=== PATIENT | female | born 1990 | race Caucasian/White ===

== ENCOUNTER 2020-10-27 11:12 | Emergency (ER) | payer SELFPAY ==
[~2020-10-27] VITALS: Ht 167 cm; Wt 55.0 kg
[~2020-10-27 11:12] MED LIST: AC500T PO; CLIN-81 PO; DOXY100C2 PO; HYDR-1231 PO; HYDR-34 PO; IBP800T PO; METR500T PO; NAPR-243 PO; PREN1TAB39 PO; RNT150T PO; SULF-222 PO; SULF1TAB38 PO; TRAM50TA2 PO
[2020-10-27 12:00] LABS: BILIRUBIN,URINE NEGATIVE (NEGATIVE); CLARITY,URINE CLEAR; COLOR,URINE YELLOW; GLUCOSE, URINE (UA) NEGATIVE (NEGATIVE); KETONES,URINE TRACE (NEGATIVE); LEUKOCYTE ESTERASE ,URINE 1+ (NEGATIVE); NITRITE,URINE POSITIVE (NEGATIVE); PROTEIN,URINE NEGATIVE (NEGATIVE)
[2020-10-27 12:06] LABS: BASOPHILS # (AUTO) 0.1 10^3/uL (0.0-0.1); BASOPHILS % (AUTO) 1 % (0-10); EOSINOPHILS # (AUTO) 0.1 10^3/uL (0.0-0.3); EOSINOPHILS % (AUTO) 2 % (0-10); HEMATOCRIT 38 % (35-52); HEMOGLOBIN 12.5 g/dL (11.5-16.0); LYMPHOCYTES # (AUTO) 1.3 10^3/uL (1.0-4.0); LYMPHOCYTES % (AUTO) 21 % (12-44); MEAN CORPUSCULAR HEMOGLOBIN 31 pg (25-34); MEAN CORPUSCULAR HGB CONC 33 g/dL (32-36); MEAN CORPUSCULAR VOLUME 94 fL (80-99); MEAN PLATELET VOLUME 9.6 fL (9.0-12.2); MONOCYTES # (AUTO) 0.9 10^3/uL (0.0-1.0); MONOCYTES % (AUTO) 15 % (0-12); NEUTROPHILS # (AUTO) 3.8 10^3/uL (1.8-7.8); NEUTROPHILS % (AUTO) 60 % (42-75); PLATELET COUNT 319 10^3/uL (130-400); WHITE BLOOD COUNT 6.3 10^3/uL (4.3-11.0)
[2020-10-27 12:10] LABS: BACTERIA,URINE MODERATE /HPF; WBC,URINE >100 /HPF
[2020-10-27 12:12] LABS: ALBUMIN 3.6 GM/DL (3.2-4.5); CHLORIDE 104 MMOL/L (98-107); POTASSIUM 3.8 MMOL/L (3.6-5.0); SODIUM 136 MMOL/L (135-145)
[2020-10-27 12:13] LABS: CALCIUM 8.4 MG/DL (8.5-10.1)
[2020-10-27 12:14] LABS: GLUCOSE 103 MG/DL (70-105)
[2020-10-27 12:15] LABS: TOTAL PROTEIN 7.2 GM/DL (6.4-8.2)
[2020-10-27] MEDS ORDERED: CATHETER FLUSH 10 ML SYR IV PRN (12:15)
[2020-10-27] MEDS ORDERED: IOHEXOL 350 MG/ML 100 ML (OMNIPAQUE 350) VIAL IV ONE (12:15)
[2020-10-27] MEDS ORDERED: NS 100 ML (IVPB) BAG IV ONE (12:15)
[2020-10-27] MEDS ORDERED: HOLD METFORMIN - RECEIVED CONTRAST 20 ML VIAL IV SCH (12:15)
[2020-10-27 12:16] LABS: BILIRUBIN,TOTAL 0.3 MG/DL (0.1-1.0); CARBON DIOXIDE 27 MMOL/L (21-32)
[2020-10-27 12:18] LABS: ALKALINE PHOSPHATASE 52 U/L (40-136); CREATININE SERUM 0.76 MG/DL (0.60-1.30); GFR ESTIMATED > 60
--- NOTE | 2020-10-27 12:18 | ED Abdominal Pain ---
General Chief Complaint: Abdominal/GI Problems Stated Complaint: RLQ PAIN Nursing Triage Note: PT AMB TO ROOM 6 PT CO OF ABD PAIN IN R LOWER ABD STATES STARTED YESTERDAY, HAS OCC NAUSEA, PT STATES HAS RECENTLY BEEN TREATED FOR CLAMIDIA AND UTI COUPLE WEEKS AGO, STATES HAD ABN PAP AND HAD BX OF CERVIX AT [facility]. LMP10/20 Sepsis Screen: No Definite Risk Source of Information: Patient Exam Limitations: No Limitations History of Present Illness Date Seen by Provider: Oct 27, 2020 Time Seen by Provider: 12:18 Initial Comments Right lower quadrant abdominal pain since yesterday. Recent diagnosis of chlamydia and UTI a few weeks ago. Timing/Duration: 1-2 Days Severity/Quality: Moderate Location: RLQ Radiation: No Radiation Activities at Onset: None Associated Symptoms: Denies Symptoms Allergies and Home Medications Allergies Coded Allergies: tramadol (Verified Allergy, Intermediate, 10/16/13) Seizure Home Medications Hydrocodone Bit/Acetaminophen 1 Tab Tablet, 1 TAB PO Q6H PRN for PAIN Prescribed by: MARIANNE ERNANDEZ on 07/22/142008 Polyethylene Glycol 3350 17 Gm Powd.pack, 17 GM PO BID Prescribed by: MARIANNE ERNANDEZ on 10/27/20 132 Sulfamethoxazole/Trimethoprim 1 Each Tablet, 1 EACH PO BID Prescribed by: MARIANNE ERNANDEZ on 10/27/20 132 Trimethoprim/Sulfamethoxazole 1 Ea Tablet, 1 EA PO BID Prescribed by: MARIANNE ERNANDEZ on 07/18/14 1901 Patient Home Medication List Home Medication List Reviewed: Yes Review of Systems Review of Systems Constitutional: see HPI EENTM: No Symptoms Reported Respiratory: No Symptoms Reported Cardiovascular: No Symptoms Reported Gastrointestinal: See HPI, Abdominal Pain Genitourinary: No Symptoms Reported Musculoskeletal: no symptoms reported Skin: no symptoms reported Psychiatric/Neurological: No Symptoms Reported Endocrine: No Symptoms Reported Hematologic/Lymphatic: No Symptoms Reported Past Pjoesgl-Wpiovp-Nqwjdi Hx Patient Social History Alcohol Use: Rarely Uses Smoking Status: Current Everyday Smoker Type Used: Cigarettes Recent Infectious Disease Expo: No Recent Hopitalizations: No Immunizations Up To Date Tetanus Booster (TDap): Less than 5yrs PED Vaccines UTD: No Past Medical History Surgeries: No Respiratory: No Cardiac: No Neurological: Yes (history of seizure after taking tramadol) : No Last Menstrual Period: Oct 20, 2020 Reproductive Disorders: No Gastrointestinal: Yes Gastroesophageal Reflux Musculoskeletal: No Endocrine: No Cancer: No Psychosocial: No Integumentary: No Blood Disorders: No Adverse Reaction/Blood Tranf: No Family Medical History Family history: Cardiovascular disease 03 MOTHER Family history: Hypertension 03 FATHER 03 MOTHER Physical Exam Vital Signs Vital Signs - First Documented 10/27/20 11:18 Temp 37.2 Pulse 110 Resp 20 B/P (MAP) 136/90 (105) Pulse Ox 100 Capillary Refill : Less Than 3 Seconds Height/Weight/BMI Height: 5'4" Weight: 130lbs. oz. 58.959151la; 19.00 BMI Method:Stated General Appearance: WD/WN, no apparent distress Neck: non-tender, full range of motion Respiratory: no respiratory distress, no accessory muscle use Gastrointestinal: normal bowel sounds, soft, tenderness Extremities: normal range of motion, non-tender, normal inspection Neurologic/Psychiatric: alert, normal mood/affect, oriented x 3 Skin: normal color, warm/dry Progress/Results/Core Measures Results/Orders Lab Results Laboratory Tests Test 10/27/20 11:35 10/27/20 11:55 Range/Units Urine Color YELLOW Urine Clarity CLEAR Urine pH 7.0 5-9 Urine Specific [place] 1.020 1.016-1.022 Urine Protein NEGATIVE NEGATIVE Urine Glucose (UA) NEGATIVE NEGATIVE Urine Ketones TRACE H NEGATIVE Urine Nitrite POSITIVE H NEGATIVE Urine Bilirubin NEGATIVE NEGATIVE Urine Urobilinogen 0.2 < = 1.0 MG/DL Urine Leukocyte Esterase 1+ H NEGATIVE Urine RBC (Auto) TRACE-I NEGATIVE Urine RBC 2-5 H /HPF Urine WBC >100 H /HPF Urine Squamous Epithelial Cells 10-25 H /HPF Urine Crystals NONE /LPF Urine Bacteria MODERATE H /HPF Urine Casts NONE /LPF Urine Mucus SMALL H /LPF Urine Culture Indicated YES Urine Test NEGATIVE NEGATIVE White Blood Count 6.3 4.3-11.0 10^3/uL Red Blood Count 4.06 3.80-5.11 10^6/uL Hemoglobin 12.5 11.5-16.0 g/dL Hematocrit 38 35-52 % Mean Corpuscular Volume 94 80-99 fL Mean Corpuscular Hemoglobin 31 25-34 pg Mean Corpuscular Hemoglobin Concent 33 32-36 g/dL Red Cell Distribution Width 12.9 10.0-14.5 % Platelet Count 319 130-400 10^3/uL Mean Platelet Volume 9.6 9.0-12.2 fL Immature Granulocyte % (Auto) 1 % Neutrophils (%) (Auto) 60 42-75 % Lymphocytes (%) (Auto) 21 12-44 % Monocytes (%) (Auto) 15 H 0-12 % Eosinophils (%) (Auto) 2 0-10 % Basophils (%) (Auto) 1 0-10 % Neutrophils # (Auto) 3.8 1.8-7.8 10^3/uL Lymphocytes # (Auto) 1.3 1.0-4.0 10^3/uL Monocytes # (Auto) 0.9 0.0-1.0 10^3/uL Eosinophils # (Auto) 0.1 0.0-0.3 10^3/uL Basophils # (Auto) 0.1 0.0-0.1 10^3/uL Immature Granulocyte # (Auto) 0.0 0.0-0.1 10^3/uL Sodium Level 136 135-145 MMOL/L Potassium Level 3.8 3.6-5.0 MMOL/L Chloride Level 104 98-107 MMOL/L Carbon Dioxide Level 27 21-32 MMOL/L Anion Gap 5 5-14 MMOL/L Blood Urea Nitrogen 10 7-18 MG/DL Creatinine 0.76 0.60-1.30 MG/DL Estimat Glomerular Filtration Rate > 60 BUN/Creatinine Ratio 13 Glucose Level 103 70-105 MG/DL Calcium Level 8.4 L 8.5-10.1 MG/DL Corrected Calcium 8.7 8.5-10.1 MG/DL Total Bilirubin 0.3 0.1-1.0 MG/DL Aspartate Amino Transf (AST/SGOT) 15 5-34 U/L Alanine Aminotransferase (ALT/SGPT) 13 0-55 U/L Alkaline Phosphatase 52 40-136 U/L C-Reactive Protein High Sensitivity 3.89 H 0.00-0.50 MG/DL Total Protein 7.2 6.4-8.2 GM/DL Albumin 3.6 3.2-4.5 GM/DL My Orders Orders - MARIANNE ERNANDEZ HARDWOOD SAWYER Cbc With Automated Diff (10/27/20 11:54) Comprehensive Metabolic Panel (10/27/20 11:54) Hs C Reactive Protein (10/27/20 11:54) Ua Culture If Indicated (10/27/20 11:54) Ct Abd/Pelv W (Appendicitis) (10/27/20 11:54) Iohexol Injection (Omnipaque 350 Mg/Ml 1 (10/27/20 12:15) Received Contrast (Hold Metformin- Contr (10/27/20 12:15) Sodium Chloride Flush (Catheter Flush Sy (10/27/20 12:15) Ns (Ivpb) (Sodium Chloride 0.9% Ivpb Bag (10/27/20 12:15) Urine Culture (10/27/20 11:35) Chlamydia Trachomatis Urine (10/27/20 12:24) Neis Kaushik Dna Urine Test (10/27/20 12:24) Hcg,Qualitative Urine (10/27/20 12:27) Ceftriaxone For Iv Use (Rocephin For I (10/27/20 13:00) Medications Given in ED Current Medications Medications Dose Ordered Sig/Cheli Route Start Time Stop Time Status Last Admin Dose Admin Iohexol 100 ml ONCE ONCE IV 10/27/20 12:15 10/27/20 12:16 DC 10/27/20 12:47 74 ML Sodium Chloride 10 ml NEEDED PRN IV 10/27/20 12:15 10/27/20 12:47 10 ML Sodium Chloride 100 ml ONCE ONCE IV 10/27/20 12:15 10/27/20 12:16 DC 10/27/20 12:47 80 ML Vital Signs/I&O 10/27/20 11:18 Temp 37.2 Pulse 110 Resp 20 B/P (MAP) 136/90 (105) Pulse Ox 100 Blood Pressure Mean: 105 Departure Impression Primary Impression: Constipation Additional Impression: Urinary tract infection Disposition: 01 HOME, SELF-CARE Condition: Stable Departure-Patient Inst. Decision time for Depature: 13:20 Referrals: [facility] (PCP/Family) Primary Care Physician Patient Instructions: Constipation, Adult (DC), Urinary Tract Infection, Adult (DC) Add. Discharge Instructions: 1. Antibiotics and laxative as directed. Return to ER for any concerns or worsening symptoms. Follow-up with your doctor next week. All discharge instructions reviewed with patient and/or family. Voiced understanding. Scripts Polyethylene Glycol 3350 (Miralax) 17 Gm Powd.pack 17 GM PO BID, #10 EACH Prov: MARIANNE ERNANDEZ HARDWOOD SAWYER 10/27/20 Sulfamethoxazole/Trimethoprim (Bactrim Ds Tablet) 1 Each Tablet 1 EACH PO BID, #14 TAB Prov: MARIANNE ERNANDEZ APRN 10/27/20 Work/School Note: Work Release Form Date Seen in the Emergency Department: Oct 27, 2020 Return to Work: Oct 29, 2020 MARIANNE ERNANDEZ APRN Oct 27, 2020 12:18
[2020-10-27 12:19] LABS: BUN/CREATININE RATIO 13
[2020-10-27 12:21] LABS: ALANINE AMINOTRANSFERASE 13 U/L (0-55)
[2020-10-27] MEDS ORDERED: cefTRIAXone FOR IV USE 1,000 MG in WATER (STERILE) FOR INJECTION 10 ML IV ONE (13:00)
--- NOTE | 2020-10-27 13:17 | Diagnostic Imaging Report ---
PROCEDURE: CT abdomen and pelvis with contrast, rule out appendicitis. TECHNIQUE: Multiple contiguous axial images were obtained through the abdomen and pelvis after the administration of intravenous contrast. All CT scans use one or more of the following dose optimizing techniques: automated exposure control, MA and/or KvP adjustment based on patient size and exam type or iterative reconstruction. INDICATION: Abdominal pain, right lower quadrant. COMPARISON: 03/02/2014. FINDINGS: No focal hepatic, gallbladder, pancreatic, adrenal gland, or splenic abnormality is identified. There is good enhancement of the kidneys without evidence of hydronephrosis or mass. There is a moderate to large amount of stool at the level of the cecum. No significant small bowel dilatation is identified; however, there is fluid distention of the distal small bowel. There may be trace pelvic free fluid which could be physiologic. The uterus is retroverted. No urinary bladder abnormality is identified. The appendix is not clearly identified. IMPRESSION: A moderate to large amount of stool at the level of the cecum may contribute to the patient's symptoms; however, no focal inflammation or organized fluid collection is identified. There may be mild physiologic pelvic free fluid and a possible small bowel ileus. Dictated by: Dictated on workstation # [id number]
[2020-10-27] MEDS ORDERED: POLY17PO6 PO (13:21)
[2020-10-27] MEDS ORDERED: SULF1TAB35 PO (13:21)
[2020-10-27 13:44] VITALS: BP 122/74
== END 2020-10-27 13:45 | disposition home or self-care (01) ==
LOC: EDUNIT# 11:12 → ER 11:14
DX: K59.00 Constipation, unspecified (principal); N39.0 Urinary tract infection, site not specified; F41.9 Anxiety disorder, unspecified; Z88.5 Allergy status to narcotic agent; Z82.49 Family history of ischemic heart disease and other diseases of the circulatory system
CPT/HCPCS: 36415; 74177; 80053; 81000; 84703; 85025; 86141; 87077; 87088; 87491; 87591

== ENCOUNTER 2021-01-28 09:46 | Emergency (ER) | payer SELFPAY ==
[~2021-01-28] VITALS: Ht 162.5 cm; Wt 56.6 kg
[~2021-01-28 09:46] MED LIST changes: +POLY17PO6 PO; +SULF1TAB35 PO
--- NOTE | 2021-01-28 10:26 | ED Upper Extremity ---
General Chief Complaint: Upper Extremity Stated Complaint: L HAND PAIN Nursing Triage Note: PT REPORTS INJURING L HAND FOUR DAYS AGO. PT REPORTS HOLDING DOG'S COLLAR WHEN DOG JERKED CAUSING PT TO HAVE L HAND PAIN. 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 PT REPORTS PAIN IS WORSE IN RING FINGER AND PINKIE FINGER. PT REPORTS NO PAIN AT THIS TIME BUT PAIN WITH USE. Nursing Sepsis Screen: No Definite Risk History of Present Illness Date Seen by Provider: Jan 28, 2021 Time Seen by Provider: 10:20 Initial Comments Patient is a 30-year-old female who presents to the emergency department today with a chief complaint of left hand pain. Patient is right-hand dominant and states that she was holding onto her dog's collar about 4 days ago with her left hand when the dog jerked away from her. Patient has complained of pain and swelling and discomfort since that time. She noticed it was much worse this morning when she was trying to lift heavy boxes at work. No other complaints of illness or injury. She denies pain to the left elbow or left shoulder. She did not fall or hit her head. She has not taken anything for the pain All other review of systems reviewed and negative except as stated above. Onset: last week Severity: moderate Pain/Injury Location: left hand Method of Injury: twisted Modifying Factors: Worse With Movement Allergies and Home Medications Allergies Coded Allergies: tramadol (Verified Allergy, Intermediate, 10/16/13) Seizure sulfamethoxazole (Verified Allergy, Unknown, 10/27/20) trimethoprim (Verified Allergy, Unknown, 10/27/20) Home Medications Hydrocodone Bit/Acetaminophen 1 Tab Tablet, 1 TAB PO Q6H PRN for PAIN Prescribed by: MARIANNE ERNANDEZ on 07/22/142008 Polyethylene Glycol 3350 17 Gm Powd.pack, 17 GM PO BID Prescribed by: MARIANNE ERNANDEZ on 10/27/20 132 Sulfamethoxazole/Trimethoprim 1 Each Tablet, 1 EACH PO BID Prescribed by: MARIANNE ERNANDEZ on 10/27/20 1321 Trimethoprim/Sulfamethoxazole 1 Ea Tablet, 1 EA PO BID Prescribed by: MARIANNE ERNANDEZ on 07/18/14 1901 Patient Home Medication List Home Medication List Reviewed: Yes Review of Systems Constitutional: see HPI EENTM: no symptoms reported Respiratory: no symptoms reported Cardiovascular: no symptoms reported Gastrointestinal: no symptoms reported Genitourinary: no symptoms reported : No Musculoskeletal: joint pain (Left hand) Skin: change in color (Bruising left hand) All Other Systems Reviewed Negative Unless Noted: Yes Past Urdydeu-Ounspy-Alcgck Hx Patient Social History Alcohol Use: Denies Use Smoking Status: Current Everyday Smoker Type Used: Cigarettes 2nd Hand Smoke Exposure: Yes Recent Infectious Disease Expo: No Recent Hopitalizations: No Immunizations Up To Date Tetanus Booster (TDap): Less than 5yrs PED Vaccines UTD: No Past Medical History Surgeries: No Respiratory: No Cardiac: No Neurological: Yes (history of seizure after taking tramadol) Reproductive Disorders: No Gastrointestinal: Yes Gastroesophageal Reflux Musculoskeletal: No Endocrine: No Cancer: No Psychosocial: No Integumentary: No Blood Disorders: No Adverse Reaction/Blood Tranf: No Family Medical History Family history: Cardiovascular disease 03 MOTHER Family history: Hypertension 03 FATHER 03 MOTHER Physical Exam Vital Signs Vital Signs - First Documented 01/28/21 10:02 Temp 36.9 Pulse 83 Resp 20 B/P (MAP) 130/87 (101) Pulse Ox 98 O2 Delivery Room Air Capillary Refill : Less Than 3 Seconds Height, Weight, BMI Height: 5'4" Weight: 130lbs. oz. 58.618097eu; 21.00 BMI Method:Stated General Appearance: WD/WN, no apparent distress HEENT: PERRL/EOMI Neck: full range of motion Cardiovascular: regular rate, rhythm Respiratory: no respiratory distress, no accessory muscle use Shoulder: normal inspection, non-tender, no evidence of injury, normal ROM Elbow/Forearm: normal inspection, non-tender, no evidence of injury, normal ROM Wrist: Yes normal inspection, Yes non-tender, Yes no evidence of injury, Yes no rmal ROM Hand: Left (Left hand shows some bruising and ecchymosis over the volar aspect of the left fourth and fifth fingers. She has tenderness to palpation over the metacarpals of the fourth and fifth finger) Neurologic/Tendon: normal sensation, normal motor functions, normal tendon functions Neurologic/Psychiatric: alert, normal mood/affect, oriented x 3 Skin: normal color, warm/dry Progress/Results/Core Measures Results/Orders My Orders Orders - VON BREAUX MD Hand, Left, 3 Views (01/28/21 10:23) Vital Signs/I&O 01/28/21 10:02 Temp 36.9 Pulse 83 Resp 20 B/P (MAP) 130/87 (101) Pulse Ox 98 O2 Delivery Room Air Blood Pressure Mean: 101 Departure Impression Primary Impression: Sprain of left hand Qualified Codes: S63.92XA - Sprain of unspecified part of left wrist and hand, initial encounter Disposition: HOME, SELF-CARE Condition: Stable Departure-Patient Inst. Decision time for Depature: 11:08 Referrals: [facility] ([place]/Family) Primary Care Physician Patient Instructions: Hand Pain (DC) Add. Discharge Instructions: Take [id number] ibuprofen 3 tablets, which is 600 mg, every 8 hours with food for pain. You can use ice to your left hand for the swelling. An Ugo wrap for comfort. Follow-up with your primary caregiver as needed for any further follow-up Return to the emergency room for any new, acute or emergent complaints. VON BREAUX MD Jan 28, 2021 10:26
[2021-01-28 11:15] VITALS: BP 130/87
--- NOTE | 2021-01-28 11:21 | Diagnostic Imaging Report ---
INDICATION: Left hand injury. Time of exam 10:55 a.m. The distal radius and ulna appear intact. The carpus appears intact. Metacarpals are unremarkable. The phalanges appear intact. Alignment is normal. IMPRESSION: No acute bony abnormality is detected. Dictated by: Dictated on workstation # [id number]
== END 2021-01-28 11:15 | disposition home or self-care (01) ==
LOC: EDUNIT# 09:46 → ER 09:48
DX: S63.92XA Sprain of unspecified part of left wrist and hand, initial encounter (principal); F17.210 Nicotine dependence, cigarettes, uncomplicated; Z88.2 Allergy status to sulfonamides; Z88.5 Allergy status to narcotic agent; Z88.1 Allergy status to other antibiotic agents; X50.0XXA Overexertion from strenuous movement or load, initial encounter
CPT/HCPCS: 73130

== ENCOUNTER 2021-08-14 14:38 | Emergency (ER) | payer SELFPAY ==
[~2021-08-14] VITALS: Ht 162.6 cm; Wt 56.6 kg
[~2021-08-14 14:38] MED LIST changes: -SULF1TAB35 PO
[2021-08-14] MEDS ORDERED: AMOXICILLIN 500 MG (POLYMOX) CAP PO STA (15:45)
[2021-08-14] MEDS ORDERED: AMOX500T2 PO (15:49)
--- NOTE | 2021-08-14 15:49 | ED Integumentary General ---
General Chief Complaint: Skin/Wound Problems Stated Complaint: KNOT/SWELLING/PAIN RIGHT SIDE OF NECK Nursing Triage Note: TO ED VIA POV AND AMBULATORY TO FT1 WITH C/O "2 KNOTS IN RIGHT SIDE OF NECK AND REDNESS". NO REDNESS OR SWELLING VISIBLY NOTED. PT STATES THIS STARTED APPROX 1 WEEK AGO SMALL "KNOT" AND NOW IS BECOMING BIGGER WITH "2 KNOTS" AND C/O OF RIGHT EAR PAIN. DENIES SORE THROAT, FEVERS. Source: patient Exam Limitations: no limitations History of Present Illness Date Seen by Provider: Aug 14, 2021 Time Seen by Provider: 15:46 Initial Comments To ER with a tender knot to the right side of her neck as well as some right ear pain and a bad tooth on the right side. No fevers or chills. Symptoms began 2 to 3 days ago. Timing/Duration: just prior to arrival Severity: moderate Possible Cause: no cause identified Associated Symptoms: denies symptoms Allergies and Home Medications Allergies Coded Allergies: tramadol (Verified Allergy, Intermediate, 10/16/13) Seizure sulfamethoxazole (Verified Allergy, Unknown, Hives, 08/14/21) trimethoprim (Verified Allergy, Unknown, Hives, 08/14/21) Patient Home Medication List Home Medication List Reviewed: Yes Amoxicillin (Amoxicillin) 500 Mg Tablet, 500 MG PO TID Prescribed by: MARIANNE ERNANDEZ on 08/14/21 1549 Hydrocodone Bit/Acetaminophen (Hydrocodone-Apap 5-325 Tablet) 1 Tab Tablet, 1 TAB PO Q6H PRN for PAIN Prescribed by: MARIANNE ERNANDEZ on 07/22/142008 Polyethylene Glycol 3350 (Miralax) 17 Gm Powd.pack, 17 GM PO BID Prescribed by: MARIANNE ERNANDEZ on 10/27/20 1321 Sulfamethoxazole/Trimethoprim (Bactrim Ds Tablet) 1 Each Tablet, 1 EACH PO BID Prescribed by: MARIANNE ERNANDEZ on 10/27/20 1321 Trimethoprim/Sulfamethoxazole (Bactrim DS) 1 Ea Tablet, 1 EA PO BID Prescribed by: MARIANNE ERNANDEZ on 07/18/14 1901 Review of Systems Review of Systems Constitutional: see HPI; No chills, No fever EENTM: see HPI Respiratory: no symptoms reported Cardiovascular: no symptoms reported Genitourinary: no symptoms reported Musculoskeletal: no symptoms reported Skin: no symptoms reported Psychiatric/Neurological: No Symptoms Reported Endocrine: No Symptoms Reported Past Jxlmjuo-Kivscn-Ukxygl Hx Patient Social History Tobacco Use?: Yes Tobacco type used: Cigarettes Smoking Status: Current Everyday Smoker Substance use?: No Alcohol Use?: No Immunizations Up To Date Tetanus Booster (TDap): Less than 5yrs PED Vaccines UTD: No Past Medical History Surgeries: No Respiratory: No Cardiac: No Neurological: Yes (history of seizure after taking tramadol) Reproductive Disorders: No Gastrointestinal: Yes Gastroesophageal Reflux Musculoskeletal: No Endocrine: No Cancer: No Psychosocial: No Integumentary: No Blood Disorders: No Adverse Reaction/Blood Tranf: No Family Medical History Family history: Cardiovascular disease 03 MOTHER Family history: Hypertension 03 FATHER 03 MOTHER Physical Exam Vital Signs Vital Signs - First Documented 08/14/21 15:02 Temp 36.5 Pulse 94 Resp 16 B/P (MAP) 120/84 (96) Pulse Ox 100 O2 Delivery Room Air Capillary Refill : Less Than 3 Seconds General Appearance: WD/WN, no apparent distress HEENT: PERRL/EOMI, normal ENT inspection Respiratory: no respiratory distress, no accessory muscle use Extremities: normal range of motion, non-tender Neurologic/Psychiatric: alert, normal mood/affect, oriented x 3 Skin: normal color, warm/dry Skin Problem Character: other (Tender mobile dime sized lymph node posterior cervical chain right sided. Tympanic membrane obscured by cerumen. She does have a fractured and carious lower molar on the right, no swelling or abscess.) Progress/Results/Core Measures Results/Orders My Orders Orders - MARIANNE ERNANDEZ APRN Dexamethasone Injection (Decadron Inje (08/14/21 15:45) Amoxicillin Capsule (Polymox Capsule) (08/14/21 15:45) Vital Signs/I&O 08/14/21 15:02 Temp 36.5 Pulse 94 Resp 16 B/P (MAP) 120/84 (96) Pulse Ox 100 O2 Delivery Room Air Blood Pressure Mean: 96 Departure Impression Primary Impression: Dental caries Additional Impression: Lymphadenopathy of head and neck Disposition: 01 HOME, SELF-CARE Condition: Stable Departure-Patient Inst. Decision time for Depature: 15:48 Referrals: [facility] (PCP/Family) Primary Care Physician Patient Instructions: Lymphadenitis Add. Discharge Instructions: 1. Take ibuprofen for pain. This will resolve over the course of the next 3 to 4 days. Antibiotic as directed. Return to ER for any concerns. See your dentist as soon as they can see you in regards to the lower tooth on the right. All discharge instructions reviewed with patient and/or family. Voiced understanding. Scripts Amoxicillin (Amoxicillin) 500 Mg Tablet 500 MG PO TID, #21 TAB Prov: MARIANNE ERNANDEZ APRN 08/14/21 MARIANNE ERNANDEZ APRN Aug 14, 2021 15:49
[2021-08-14 16:15] VITALS: BP 120/82
== END 2021-08-14 16:15 | disposition home or self-care (01) ==
LOC: EDUNIT# 14:38 → ER 14:41
DX: K02.9 Dental caries, unspecified (principal); R59.1 Generalized enlarged lymph nodes; F17.210 Nicotine dependence, cigarettes, uncomplicated
CPT/HCPCS: 99284

== ENCOUNTER 2023-04-21 06:16 | Inpatient (IN) | payer MEDICAID ==
[2023-04-21] VITALS (32 sets, daily range): BP systolic 94–169; BP diastolic 51–87
[~2023-04-21] VITALS: Ht 162.5 cm; Wt 86.1 kg
[~2023-04-21 06:16] MED LIST changes: +AMOX500T2 PO; +PREN-142 PO
--- OUTSIDE RECORDS SUMMARY | 2023-04-21 06:19 | XMS REPORT ---
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 Name Role Phone CARLOS ALBERTO BENITEZ Unavailable PROBLEMS Type Condition ICD9-CM Code OTG91-QN Code Onset Dates Condition S tatus W/U Status Risk SNOMED Code Notes Problem Vaginal discharge N89.8 confirmed 27 7606761 Problem Missed period N92.6 confirmed 681018 00 Problem care in second trimester Z34.92 con firmed 017437211 Problem Exposure to chlamydia Z20.2 confirmed 362052291 Problem Exposure to hepatitis Z20.5 confirmed 289094858 Problem Family history of diabetes mellitus Z83.3 c onfirmed 044296674 Problem Tobacco use Z72.0 confirmed 47204895 0 Problem Anxiety F41.9 confirmed 74804724 Problem Dyspareunia, female N94.10 confirmed 02855818 Problem History of self-harm Z91.5 confirmed 556123234 Problem care in first trimester Z34.91 conf irm 385775335 Problem Initiation of OCP (BCP) Z30.011 confirmed 26554518 Problem Mood disorder F39 confirmed 257289 05 Problem Night terrors F51.4 confirmed 490116 03 Problem Moderate persistent asthma without complication J45.40 confirmed 109264726 Problem Cervical high risk human papillomavirus (HPV) DN A test positive R87.810 confirmed 755024184 ALLERGIES Allergen (clinical drug ingredient) Drug/Non Drug Allergy do cumented on EMR Reaction Allergy Type Onset Date Status sulfamethoxazole / trimethoprim Bactrim(ND Code:[address]-53) hives Drug Allergy Active tramadol Tramadol HCl(NDC Code:[address]-83) seizures Drug Aller gy Active ENCOUNTERS from 1990 to 2023-02-25 Encounter Location Date Provider [facility] [address] [facility] [id number] [place] [address] Feb, CARLOS ALBERTO BENITEZ Exposure to COVID-19 virus Z20.828 IMMUNIZATIONS Vaccine Route Administration Date Status Hib 4 dose schedule Unknown May 17, 1991 Administered Hib 4 dose schedule Unknown January 31, 1991 Administered DTP Unknown Jul 02, 1992 Administered DTP Unknown May 17, 1991 Administered OPV Unknown 1990 Administered Hib 4 dose schedule Unknown December 05, 1991 Administered Hib 4 dose schedule Unknown Aug 08, 1991 Administered PRIVATE TDAP (BOOSTRIX) IM Intramuscular February 15, 2023 Adminis tered DTP Unknown January 31, 1991 Administered DTP Unknown 1990 Administered OPV Unknown January 31, 1991 Administered OPV Unknown Jul 02, 1992 Administered OPV Unknown Apr 04, 1995 Administered hepatitis b pediatric (history) Unknown Sep 29, 2000 Administered mmr-II (history) Unknown December 05, 1991 Administered mmr-II (history) Unknown Apr 04, 1995 Administered dtap (history) Unknown Apr 04, 1995 Administered engerix hepatitis b pediatric/adolescent (history) Unknown Apr 05, 2001 Administered SOCIAL HISTORY Sex Assigned At : Social History Observation Description Sex Assigned At Unknown Alcohol Screen (Audit-C) Question Answer Notes Did you have a drink containing alcohol in the past year? No Points 0 Interpretation Negative Cessation Question Answer Notes Date Tobacco Cessation Provided: 09/09/2022 Sexual History Question Answer Notes Had sex in the past 12 months (vaginal, oral, or anal)? Yes Last menstrual period 07/24/2022 Have you ever had a Sexually transmitted disease? Yes Prevention strategies discussed: Condoms with Men only Use protection? No Other? Yes Syphilis? No Herpes? No GC? No Chlamydia? No PHQ2 Question Answer Notes In the last 2 weeks, how often have you had little interest or pleasure in doing things? Not at all In the last 2 weeks, how often have you been feeling down, depressed, or hopeless? Not at all Total PHQ2 Score 0 Tobacco use other than smoking: Question Answer Notes Are you an other tobacco user? No REASON FOR REFERRAL No Information VITAL SIGNS No information MEDICATIONS Medication SIG (Take, Route, Frequency, Duration) Notes Start Da te End Date Status 28-0.8 MG 1 tablet Orally Once a day Active Triamcinolone Acetonide 0.1 % 1 application Externally Twice a d ay for 7 days December, Not-Taking PROCEDURES No Information RESULTS No Results REASON FOR VISIT Covid Testing-[place] [employer] MEDICAL (GENERAL) HISTORY Type Description Date Surgical History No Surgical history information Goals Section No Information Health Concerns No Information MEDICAL EQUIPMENT No Information MENTAL STATUS No Information FUNCTIONAL STATUS No Information ASSESSMENTS Encounter Date Diagnosis Assessment Notes Treatment Notes Treatm ent Clinical Notes Feb, Exposure to COVID-19 virus (ICD-10 - Z20 .828) PLAN OF TREATMENT Next Appt Details Provider Name:LEDY BE, 03-01 02:15:00 PM, [address] , [place], [address], Insurance Providers Payer Name Payer Address Payer Phone Insured Name Patient Relati onship to Insured Coverage Start Date Coverage End Date Subscriber Number [facility] DENT[facility] [address] [facility] [address] Rosario Tafoya Self - patient is the insured [id number] [facility] [address] [address] [facility] [phone] Rosario Tafoya Self - patient is the insured 2022 [id number] MEDICATIONS ADMINISTERED Medication Instructions Date of Administration Dosage cefTRIAXone Sodium May, 500 mg cefTRIAXone Sodium Sep, 500 mg
[2023-04-21] MEDS ORDERED: LACTATED RINGERS 1,000 ML 500 ML IV PRN (06:30)
[2023-04-21] MEDS ORDERED: AMPICILLIN (IV) 2,000 MG in NS (IVPB) 50 ML 50 ML IV ONE (06:30)
[2023-04-21] MEDS ORDERED: D5 LR 1,000 ML IV SOLN 1,000 ML IV ONE (06:30)
[2023-04-21] MEDS ORDERED: MINERAL OIL 30 ML UDC TOP PRN (06:30)
--- NOTE | 2023-04-21 06:41 | History & Physical-OB ---
OB - Chief Complaint & HPI Date/Time Date of Admission: Date of Admission: Apr 21, 2023 at 06:16 Date seen by a Provider: Apr 21, 2023 Time Seen by a Provider: 06:30 Chief Complaint/History OB-Reason for Admission/Chief: Induction of Labor Hx : 3 Hx Para: 2 Expected Date of Delivery: Apr 28, 2023 Gestational Age in Weeks: 39 Gestational Age in Days: 0 Admission Nurse Assessment Rev: Yes History of Labs GBS positive Allergies and Home Medications Allergies Coded Allergies: tramadol (Verified Allergy, Intermediate, 10/16/13) Seizure sulfamethoxazole (Verified Allergy, Unknown, Hives, 08/14/21) trimethoprim (Verified Allergy, Unknown, Hives, 08/14/21) Patient Home Medication List Home Medication List Reviewed: Yes Vit No.124/Iron/FA ( Vitamin Tablet) 27 Mg Iron-800 Mcg Tablet, 1 EACH PO DAILY, (Reported) Entered as Reported by: ATA RASHEED on 03/19/23 8262 OB - History Hx of Present Care: Yes Ultrasounds: Normal mid trimester US Obstetrical Complications: None Medical Complications: None Obstetrical History Hx Termination: No Hx Multiple Gestation: No Hx Stillbirth: No Hx Complication: No Hx Induced Hypertens: No Hx Maternal Gestational Diabet: No Delivery History Hx Dystocia: No Hx Large For Gestational Age I: No Hx Small for Gestational Age I: No Hx Section: No Hx Vaginal Delivery Post C-Sec: No Hx Blood Disorders: No Adverse Rxn to Tranfusion: No Patient Past Medical History no chronic medical problems Social History/Family History 2nd Hand Smoke Exposure: Yes Immunizations Hepatitis A: No Hepatitis B: No Tetanus Booster (TDap): Less than 5yrs OB - Admission Exam Physical Exam HEENT: Moist Membranes Heart: Rhythm Normal Lungs: Clear Abdomen: Gravid Cervical Dilatation: 2cm Effacement: 50% Station: -3 Membranes: Intact Amniotic Fluid: Clear Heart Rate: 130's Accelerations: Accelerations Present Decelerations: No Decelerations Short Term Variability: Present Fpc Variability: Average (6-25) Contractions on Admission: None Deluca Scoring Tool (Modified) Dilation (cm): 1-2cm (1) Effacement (%): 31-51% (1) Descent/Station: -3 (0) Cervix Consistency: Medium(1) Cervix Position: Middle/Mid-Position (1) Add 1 point for: Each previous vaginal delivery (1) Deluca Score: 6 OB - Assessment/Plan/Diagnosis Assessment Assessment: induction of labor (at term) Admission Dx 1. IUP at term 39 weeks. Admission Status: Inpatient Order (span 2 midnights) Reason for Inpatient Admission: Induction of labor Plan Plan: Induction Induction Method: AROM Other Plan 1. Patient desires epidural -pitocin as necessary -GBS prophylaxis LEDY BE MD Apr 21, 2023 06:41
[2023-04-21] MEDS: D5 LR 1,000 ML IV SOLN 1,000 ML IV SCH ×2 (07:15→15:30)
--- NOTE | 2023-04-21 07:19 | Progress Note ---
Standard Progress Note Progress Notes/Assess & Plan Date Seen by a Provider: Apr 21, 2023 Time Seen by a Provider: 07:05 Progress/Assessment & Plan Called to room 319 for difficult IV start. Multiple attempts prior to my arrival. 22 G IV Rt wrist x 1 attempt. Flushed with ease and tegaderm applied. NIMISHA DENG DO Apr 21, 2023 07:19
[2023-04-21] MEDS ORDERED: OXYTOCIN DRIP PRE-MIX 500 ML IV SCH ×2 (08:00→17:30)
[2023-04-21 08:17] LABS: BASOPHILS # (AUTO) 0.1 10^3/uL (0.0-0.1); BASOPHILS % (AUTO) 1 % (0-10); EOSINOPHILS # (AUTO) 0.1 10^3/uL (0.0-0.3); EOSINOPHILS % (AUTO) 1 % (0-10); HEMATOCRIT 29 % (35-52); HEMOGLOBIN 9.2 g/dL (11.5-16.0); LYMPHOCYTES # (AUTO) 2.5 10^3/uL (1.0-4.0); LYMPHOCYTES % (AUTO) 24 % (12-44); MEAN CORPUSCULAR HEMOGLOBIN 24 pg (25-34); MEAN CORPUSCULAR HGB CONC 31 g/dL (32-36); MEAN CORPUSCULAR VOLUME 78 fL (80-99); MEAN PLATELET VOLUME 10.6 fL (9.0-12.2); MONOCYTES # (AUTO) 1.1 10^3/uL (0.0-1.0); MONOCYTES % (AUTO) 10 % (0-12); NEUTROPHILS # (AUTO) 6.8 10^3/uL (1.8-7.8); NEUTROPHILS % (AUTO) 64 % (42-75); PLATELET COUNT 361 10^3/uL (130-400); WHITE BLOOD COUNT 10.7 10^3/uL (4.3-11.0)
[2023-04-21 09:26] LABS: AMPHETAMINE SCREEN, URINE NEGATIVE (NEGATIVE); BARBITURATE SCREEN URINE NEGATIVE (NEGATIVE); BENZODIAZEPINES SCREEN URINE NEGATIVE (NEGATIVE); CANNABINOID SCREEN, URINE POSITIVE (NEGATIVE); COCAINE SCREEN URINE NEGATIVE (NEGATIVE); METHADONE STAT NEGATIVE (NEGATIVE); OPIATE SCREEN URINE NEGATIVE (NEGATIVE); OXYCODONE STAT NEGATIVE (NEGATIVE); PROPOXYPHENE STAT NEGATIVE (NEGATIVE); TRICYCLIC ANTIDEPRESSANTS SCRE NEGATIVE (NEGATIVE)
[2023-04-21] MEDS ORDERED: LACTATED RINGERS 1,000 ML 1,000 ML IV ONE (09:27)
[2023-04-21] MEDS ORDERED: fentaNYL 2 mcg/ml BUPIVA 0.125 100 ML ONE (09:27)
[2023-04-21] MEDS ORDERED: fentaNYL INJECTION 100 MCG/2 ML VIAL ONE (10:07)
[2023-04-21] MEDS ORDERED: BUPIVACAINE 0.25% 10 ML VIAL ONE (10:07)
[2023-04-21] MEDS ORDERED: LACTATED RINGERS 1,000 ML 1,000 ML IV SCH (10:15)
[2023-04-21] MEDS ORDERED: NALOXONE 0.4 MG/ML 1 ML VIAL IV PRN ×2 (10:15→17:30)
[2023-04-21] MEDS ORDERED: fentaNYL 2 mcg/ml BUPIVA 0.125 100 ML EPI SCH (10:15)
[2023-04-21] MEDS ORDERED: ONDANSETRON INJECTION 4 MG/2 ML (SDV) IV PRN (10:15)
[2023-04-21] MEDS ORDERED: diphenhydrAMINE INJ 50 MG/ML VIAL IV PRN (10:15)
[2023-04-21] MEDS: AMPICILLIN (IV) 1,000 MG in NS (IVPB) 50 ML 50 ML IV SCH ×2 (11:46→15:29)
[2023-04-21] MEDS ORDERED: CATHETER FLUSH 10 ML SYR IV SCH ×2 (14:00→22:00)
[2023-04-21] MEDS ORDERED: MEPIVACAINE 2% 50 ML VIAL ONE (16:34)
--- NOTE | 2023-04-21 17:28 | OB Labor & Delivery Record ---
L&D History Date of Service Date of Service: Apr 21, 2023 History Expected Date of Delivery: Apr 28, 2023 Gestational Age in Weeks: 39 Hx : 3 Hx Para: 3 Complications Events: Routine care Operative Indications (Cesarea: N/A-Vaginal Delivery Intrapartal Events: None Other Complications GBS positive at 36 weeks and she was treated with 3 doses of ampicillin L&D Stage1 Stage One Onset of Labor - Date: Apr 21, 2023 Onset of Labor - Time: 07:15 Monitors and Tracing Monitor Mode: Internal Heart Rate: 135 Monitor Accelerations: Uniform Monitor Decelerations: Variable Station: -3 Cooker Syrup Variability: Average (6-10) Short Term Variability: Present Presentation: Vertex Vital Signs VS - Last 72 Hours, by Label 04/21/23 04/21/23 04/21/23 04/21/23 07:20 08:38 09:58 10:11 Temp 37.0 36.7 36.3 Pulse 81 81 90 80 Resp 18 18 18 18 B/P (MAP) 114/78 (90) 131/78 (95) 132/73 (92) Pulse Ox 98 O2 Delivery Room Air Room Air Room Air Room Air 04/21/23 04/21/23 04/21/23 04/21/23 10:18 10:21 10:24 10:27 Pulse 91 91 91 90 Resp 18 18 18 18 B/P (MAP) 128/81 (97) 119/77 (91) 121/77 (92) 133/76 (95) Pulse Ox 100 99 99 99 O2 Delivery Room Air Room Air Room Air Room Air 04/21/23 04/21/23 04/21/23 04/21/23 10:30 10:33 10:35 11:20 Temp 36.1 Pulse 88 90 107 77 Resp 18 18 20 18 B/P (MAP) 121/73 (89) 124/76 (92) 113/69 (84) 114/61 (78) Pulse Ox 99 99 99 99 O2 Delivery Room Air Room Air Room Air Room Air 04/21/23 04/21/23 04/21/23 04/21/23 12:30 13:30 13:45 14:00 Pulse 82 75 76 72 Resp 18 18 18 18 B/P (MAP) 115/70 (85) 114/56 (75) 117/72 (87) 118/68 (85) Pulse Ox 100 100 100 100 O2 Delivery Room Air 04/21/23 04/21/23 04/21/23 04/21/23 14:15 14:30 14:45 15:00 Temp 36.5 Pulse 86 82 90 92 Resp 18 18 18 18 B/P (MAP) 94/51 (65) 96/51 (66) 116/57 (76) 169/58 (95) Pulse Ox 100 100 100 100 Signs of Distress by FHT Signs of Distress no Rupture of Membranes Spontaneous Ruture of Membrane: No Amniotic Membrane Rupture Time: 714 Amniotic Membrane Fluid Desc.: Meconium Stained Vaginal Bleeding Description: None Induction/Anesthesia Epidural Cath Placement - Time: 1028 L&D Stage2 Stage Two Stage II Date: Apr 21, 2023 Stage II Time: 16:57 Monitors and Tracing Monitor Mode: Internal Heart Rate: 135 Monitor Accelerations: Uniform Monitor Decelerations: Variable Cooker Syrup Variability: Average (6-10) Short Term Variability: Present Position: Left Occiput Anterior Presentation: Vertex Signs of Distress by FHT Signs of Distress no Cord Descript/Complications Cord Vessel Description: 3 Vessels Delivery Type Infant Delivery Method: Spontaneous Vaginal Episiotomy/Perineal Laceration Laceraction(s)/Extensions: Yes Episiotomy Description: Midline Sutures Used: Vicryl Condition of Infant Delivery 1 minute Comment: 8 5 minute Comment: 9 Condition of Condition of Infant: Living Exam: No Observed Abnormalities Resuscitation Resuscitation: N/A - Spontaneous Resp L&D Stage3 Stage Three Stage III Date: Apr 21, 2023 Stage III Time: 17:03 Pictocin Pitocin Administration mu/min: 4 Pitocin ml/hr: 4 Pitocin Administration Comment: pitocin increased per protocol Placenta Delivery Placenta Delivery: Spontaneous Delivery Summary Summary Estimated blood loss (mL): 150 Condition of Delivery Examined: Cervix Examined Post Hemorrhage: No Intervention Required None LEDY BE MD Apr 21, 2023 17:28
[2023-04-21] MEDS ORDERED: Tetanus/Diphtheria/Pertussis (Acell) ADULT Vaccine 0.5 ML IM ONE (17:30)
[2023-04-21] MEDS ORDERED: BENZOCAINE/MENTHOL (DERMOPLAST) 56 ML CAN TP PRN (17:30)
[2023-04-21] MEDS ORDERED: WITCH HAZEL(TUCKS) 40 EA JAR TOP PRN (17:30)
[2023-04-21] MEDS ORDERED: MEASLES, MUMPS, RUBELLA VACCINE (MMR) SQ ONE (17:30)
[2023-04-21] MEDS: IBUPROFEN 600 MG TABLET PO SCH (19:07)
[2023-04-21] MEDS: DOCUSATE SODIUM 100 MG CAPSULE PO SCH (21:00)
[2023-04-21] MEDS: ACETAMINOPHEN 500 MG TABLET PO SCH (22:49)
[2023-04-22 00:45] VITALS: BP 104/58
[2023-04-22] MEDS: IBUPROFEN 600 MG TABLET PO SCH ×4 (00:53→18:14)
[2023-04-22 05:30] VITALS: BP 122/84
[2023-04-22 05:46] LABS: BASOPHILS # (AUTO) 0.1 10^3/uL (0.0-0.1); BASOPHILS % (AUTO) 0 % (0-10); EOSINOPHILS # (AUTO) 0.1 10^3/uL (0.0-0.3); EOSINOPHILS % (AUTO) 1 % (0-10); HEMATOCRIT 27 % (35-52); HEMOGLOBIN 8.7 g/dL (11.5-16.0); LYMPHOCYTES # (AUTO) 2.7 10^3/uL (1.0-4.0); LYMPHOCYTES % (AUTO) 11 % (12-44); MEAN CORPUSCULAR HEMOGLOBIN 25 pg (25-34); MEAN CORPUSCULAR HGB CONC 32 g/dL (32-36); MEAN CORPUSCULAR VOLUME 78 fL (80-99); MEAN PLATELET VOLUME 10.6 fL (9.0-12.2); MONOCYTES % (AUTO) 8 % (0-12); NEUTROPHILS # (AUTO) 19.9 10^3/uL (1.8-7.8); NEUTROPHILS % (AUTO) 80 % (42-75); PLATELET COUNT 327 10^3/uL (130-400)
[2023-04-22 06:03] LABS: LYMPHOCYTES % (MANUAL) 10 %; MONOCYTES % (MANUAL) 6 %; NEUTROPHILS % (MANUAL) 81 %; REACTIVE LYMPHOCYTES 3 %
[2023-04-22 08:00] VITALS: BP 122/64
[2023-04-22] MEDS: DOCUSATE SODIUM 100 MG CAPSULE PO SCH (08:09)
[2023-04-22] MEDS: ACETAMINOPHEN 500 MG TABLET PO SCH ×2 (08:12→14:26)
--- NOTE | 2023-04-22 09:41 | Anesthesia-Regional Post-Op ---
Regional Patient Condition Mental Status: Alert, Oriented x3 Circulation: Same as Pre-Op Headache: Absent Sensation: Full Recovery Motor Block: Absent Post Op Complications Complications None Follow Up Care/Instructions Patient Instructions None needed. Anesthesia/Patient Condition Patient is doing well, no complaints, stable vital signs, no apparent adverse anesthesia problems. No complications reported per nursing. NIMIHSA DENG DO Apr 22, 2023 09:41
--- NOTE | 2023-04-22 10:39 | Discharge Inst-Women's Service ---
Discharge Inst-Women's Serv Depart Medication/Instructions New, Converted or Re-Newed RX: Other Instructions May take ibuprofen 200mg 2 or 3 tabs every 6hrs for cramping. Problems Reviewed?: Yes Consults/Follow Up Additional Follow Up: Yes (Dr Be in 6 weeks at [facility]) Activity Nothing Inside Vagina: No [place] (for 6 weeks.) Diet Discharge Diet: Regular Diet Return to The Hospital For: as below Symptoms to Report to : Bleeding Excessive, Fever Over 101 Degrees F, Vaginal Discharge Foul For Any Problems or Questions: Contact Your Physician LEDY BE MD Apr 22, 2023 10:39
--- NOTE | 2023-04-22 10:45 | Discharge Summary ---
Diagnosis/Chief Complaint Date of Admission Apr 21, 2023 at 06:16 Date of Discharge April 22, 2023 Admission Diagnosis Admission Diagnosis 1. Intrauterine at term 39 weeks 2. Anemia of -iron deficiency Discharge Diagnosis 1. Intrauterine at term 39 weeks 2. Anemia of -iron deficiency Chief Complaint/HPI Chief Complaint/HPI 32-year-old 3 now term 3 L3 who initially presents to labor and delivery for induction of labor. She had an EDC of April 28, 2023. Her GBS status performed at 26 weeks was noted to be positive. Discharge Summary-OBS Procedures 1. Epidural per anesthesia 2. Spontaneous vaginal delivery 3. Repair of midline episiotomy Discharge Physical Examination Allergies: Coded Allergies: tramadol (Verified Allergy, Intermediate, 10/16/13) Seizure sulfamethoxazole (Verified Allergy, Unknown, Hives, 08/14/21) trimethoprim (Verified Allergy, Unknown, Hives, 08/14/21) Vitals & I&Os Intake and Output 04/22/23 00:00 Intake Total 1650 ml Balance 1650 ml Vital Sign - Last 12Hours Date Time Temp Pulse Resp B/P (MAP) Pulse Ox O2 Delivery O2 Flow Rate FiO2 04/22/23 08:00 36.6 97 18 122/64 (83) 99 Room Air Hospital Course patient presented in the morning of April 21, 2023 for induction of labor at 39 weeks gestation. She was without any significant contraction at the time. She was noted to be GBS positive at her 36 week checkup. She received ampicillin protocol and did receive 3 doses during the course of her stay. She underwent amniotomy with placement of scalp electrode. Eventually with the help of low-dose Pitocin augmentation she began dilation. She also received epidural. Once a completion she delivered over a midline episiotomy a term viable male. received Apgars of 8 at 1 minute and 9 at 5 minutes. Following delivery she underwent routine care orders. She had no complications during the remainder of hospital stay. She was noted to void urine without difficulty. She tolerated regular diet. There was no reports of chest pain or leg pain. Her hemoglobin in the morning of April 22 was 8.7 compared to admission of 92. She was felt ready for dismissal during the late afternoon or early April 22. She will follow up with myself in 6 weeks at [facility]. Labs Laboratory Tests 04/22/23 05:35: White Blood Count 25.0H, Red Blood Count 3.53L, Hemoglobin 8.7L, Hematocrit 27L, Mean Corpuscular Volume 78L, Mean Corpuscular Hemoglobin 25, Mean Corpuscular Hemoglobin Concent 32, Red Cell Distribution Width 17.5H, Platelet Count 327, Mean Platelet Volume 10.6, Immature Granulocyte % (Auto) 1, Neutrophils (%) (Auto) 80H, Lymphocytes (%) (Auto) 11L, Monocytes (%) (Auto) 8, Eosinophils (%) (Auto) 1, Basophils (%) (Auto) 0, Neutrophils # (Auto) 19.9H, Lymphocytes # (Auto) 2.7, Monocytes # (Auto) 2.0H, Eosinophils # (Auto) 0.1, Basophils # (Auto) 0.1, Immature Granulocyte # (Auto) 0.2H, Neutrophils % (Manual) 81, Lymphocytes % (Manual) 10, Monocytes % (Manual) 6, Reactive Lymphocytes 3 Discharge Instructions to patient/family Please see electronic discharge instructions given to patient. Discharge Medications Reviewed and agree with Discharge Medication list on patient's Discharge In struction sheet LEDY BE MD Apr 22, 2023 10:45
[2023-04-22 12:00] VITALS: BP 108/68
[2023-04-22] MEDS ORDERED: MEASLES, MUMPS, RUBELLA VACCINE (MMR) ONE (14:14)
[2023-04-22 16:15] VITALS: BP 135/85
[2023-04-22 18:45] VITALS: BP 135/85
== END 2023-04-22 18:45 | disposition home or self-care (01) | DRG 807 ==
LOC: LDRP 06:16
PROVIDERS: ADMIT Family Medicine; ATTEND Family Medicine
PROC: 10E0XZZ Delivery of Products of Conception, External Approach (ICD-10-PCS; principal; 2023-04-21)
PROC: 0W8NXZZ Division of Female Perineum, External Approach (ICD-10-PCS; 2023-04-21)
PROC: 10907ZC Drainage of Amniotic Fluid, Therapeutic from Products of Conception, Via Natural or Artificial Opening (ICD-10-PCS; 2023-04-21)
PROC: 10H073Z Insertion of Monitoring Electrode into Products of Conception, Via Natural or Artificial Opening (ICD-10-PCS; 2023-04-21)
DX: O99.824 Streptococcus B carrier state complicating childbirth (principal); Z37.0 Single live birth; O99.03 Anemia complicating the puerperium; D50.9 Iron deficiency anemia, unspecified; O99.334 Smoking (tobacco) complicating childbirth; F17.210 Nicotine dependence, cigarettes, uncomplicated; O77.0 Labor and delivery complicated by meconium in amniotic fluid; Z3A.39 39 weeks gestation of pregnancy; Z23 Encounter for immunization; Z28.310 Unvaccinated for COVID-19
CPT/HCPCS: 36415; 80306; 85007; 85025; 85027; 86850; 86900; 86901; 90707